=== PATIENT | female | born 1955 | race Caucasian/White ===

== ENCOUNTER 2021-11-16 13:58 | Emergency (ER) | payer SELFPAY ==
[~2021-11-16] VITALS: Ht 157.5 cm; Wt 54.4 kg
[2021-11-16 14:23] VITALS: BP_SYST 139
[2021-11-16] MEDS ORDERED: SIME80TA15 PO ×2 (17:51→17:53)
[2021-11-16] MEDS ORDERED: DOCU250C14 PO ×2 (17:51→17:53)
[2021-11-16] MEDS ORDERED: POLY17PO4 PO ×2 (17:51→17:53)
[2021-11-16 18:02] VITALS: BP_SYST 139
== END 2021-11-16 18:02 | disposition home or self-care (01) ==
LOC: SED 13:58
DX: K59.00 Constipation, unspecified (principal); H61.23 Impacted cerumen, bilateral; R14.0 Abdominal distension (gaseous); R19.7 Diarrhea, unspecified; Z79.899 Other long term (current) drug therapy
CPT/HCPCS: 99282

== ENCOUNTER 2021-11-18 16:15 | Emergency (ER) | payer SELFPAY ==
[~2021-11-18] VITALS: Ht 160 cm; Wt 56.2 kg
[~2021-11-18 16:15] MED LIST: DOCU250C14 PO; POLY17PO4 PO; SIME80TA15 PO
[2021-11-18 16:26] VITALS: BP_SYST 145
--- NOTE | 2021-11-18 17:45 | NUR ---
ER Dr. Albright at bedside examining patient.
[2021-11-18] MEDS ORDERED: SULF1TAB48 PO (17:51)
--- NOTE | 2021-11-18 17:52 | NUR ---
Patient given written and verbal discharge instructions and verbalizes understanding. ER MD discussed with patient the results and treatment provided. Patient in stable condition. ID arm band removed.
== END 2021-11-18 17:54 | disposition home or self-care (01) ==
LOC: SED 16:15
DX: R19.7 Diarrhea, unspecified (principal); R10.84 Generalized abdominal pain; Z79.899 Other long term (current) drug therapy
CPT/HCPCS: 99283